=== PATIENT | female | born 1965 | race Caucasian/White ===

== ENCOUNTER 2023-10-24 05:34 | Outpatient (RCR) | payer BC, SELFPAY ==
[2023-10-17] MEDS: Normal Saline Flush 10 ML SYR IVP (09:10)
[2023-10-17 09:24] LABS: Abs Immature Grans 0.01 10^3/uL (0.0-0.06); Absolute Basophil Count 0.03 10^3/uL (0.0-0.2); Absolute Eosinophil Count 0.21 10^3/uL (0.0-0.7); Absolute Lymphocyte Count 1.92 10^3/uL (1.2-3.4); Absolute Monocyte Count 0.19 10^3/uL (0.1-0.8); Absolute Neutrophil Count 1.75 10^3/uL (1.2-6.7); Basophils % 0.7; Eosinophils % 5.1; HCT 35.9 % (36.0-46.0); HGB 12.3 g/dL (11.2-15.7); Immature Grans % 0.2; Lymphocytes % 46.7; MCH 30.1 pg (27.0-33.0); MCHC 34.3 % (32.0-36.0); MCV 88 fL (80-95); MPV 10.8 fL (8.0-11.0); Monocytes % 4.6; Neutrophils % 42.7; Platelet Count 241 10^3/uL (130-400); RBC 4.08 10^6/uL (3.93-5.22); RDW-SD 38.7 fL; WBC 4.11 10^3/uL (4.4-10.8)
[2023-10-17 09:46] LABS: ALT 25 U/L (14-59); AST 25 U/L (15-37); Albumin 3.6 g/dL (3.4-5.0); Alkaline Phosphatase 92 U/L (46-116); Anion Gap 9.1 mmol/L (3-11); BUN 11 mg/dL (7-18); Bilirubin, Total 0.4 mg/dL (0.2-1.0); CO2 27.9 mmol/L (21.0-32.0); CREATININE 0.8 mg/dL (0.55-1.02); Calcium 8.8 mg/dL (8.5-10.1); Chloride 102 mmol/L (98-107); Estimated GFR 84.82 (mL/min/1.73m2); Glucose 95 mg/dL (74-106); Potassium 4.2 mmol/L (3.5-5.1); Sodium 139 mmol/L (136-145); Total Protein 7.3 g/dL (6.4-8.2)
[2023-10-24] MEDS: Normal Saline Flush 10 ML SYR IVP (09:08)
[2023-10-24 09:16] LABS: Abs Immature Grans 0.02 10^3/uL (0.0-0.06); Absolute Basophil Count 0.04 10^3/uL (0.0-0.2); Absolute Eosinophil Count 0.16 10^3/uL (0.0-0.7); Absolute Lymphocyte Count 1.74 10^3/uL (1.2-3.4); Absolute Monocyte Count 0.19 10^3/uL (0.1-0.8); Absolute Neutrophil Count 1.83 10^3/uL (1.2-6.7); HCT 35.5 % (36.0-46.0); HGB 12.1 g/dL (11.2-15.7); Immature Grans % 0.5; Lymphocytes % 43.7; MCH 30.7 pg (27.0-33.0); MCHC 34.1 % (32.0-36.0); MCV 90 fL (80-95); MPV 10.4 fL (8.0-11.0); Monocytes % 4.8; Platelet Count 268 10^3/uL (130-400); RBC 3.94 10^6/uL (3.93-5.22); RDW 12.2 % (11.7-14.6); RDW-SD 40.4 fL; WBC 3.98 10^3/uL (4.4-10.8)
[2023-10-24 09:29] LABS: ALT 29 U/L (14-59); AST 24 U/L (15-37); Albumin 3.7 g/dL (3.4-5.0); Alkaline Phosphatase 95 U/L (46-116); Anion Gap 6.1 mmol/L (3-11); BUN 12 mg/dL (7-18); Bilirubin, Total 0.3 mg/dL (0.2-1.0); CO2 29.9 mmol/L (21.0-32.0); CREATININE 0.8 mg/dL (0.55-1.02); Chloride 102 mmol/L (98-107); Estimated GFR 84.82 (mL/min/1.73m2); Glucose 102 mg/dL (74-106); Potassium 4.5 mmol/L (3.5-5.1); Sodium 138 mmol/L (136-145); Total Protein 7.3 g/dL (6.4-8.2)
== END 2023-10-24 23:59 | disposition home or self-care (01) ==
LOC: INF 05:34
PROVIDERS: PCP Physician Assistant; Visit Provider Internal Medicine Hematology & Oncology
DX: C50.919 Malignant neoplasm of unspecified site of unspecified female breast (principal)
CPT/HCPCS: 36591; 80053; 85025

== ENCOUNTER → 2023-11-16 03:05 | Outpatient (CLI) | payer BC, SELFPAY ==
--- NOTE | 2023-11-16 14:58 | DI.US_ITS ---
APPROVED REPORT EXAM: Comprehensive 2D, Doppler, and color-flow Echocardiogram Patient Location: Out-Patient Licensed Staff Mft: Rebekah Harris RDCS (AE) Indications: HER2 Breast Cancer, Post Admin Chemo Other Information Study Quality: Good Conclusion Normal left ventricular wall thickness and chamber size. Ejection fraction is 60 to 65%. Wall motio n is normal Normal right ventricular size and function Both atria are normal in size There is no structural or hemodynamically significant valvular disease Estimated right ventricular systolic pressure is 21 mmHg Wall motion Left Ventricle The left ventricle is normal size. The left ventricular systolic function is normal. The left ventric ular ejection fraction is within the normal range. GLS21.5 There is normal left ventricular wall thic kness. There is normal LV segmental wall motion. There is no ventricular septal defect visualized. LV EF is 60-65%. Right Ventricle The right ventricle is normal size. The right ventricular systolic function is normal. Atria The left atrium size is normal. The right atrium size is normal. The interatrial septum is intact wit h no evidence for an atrial septal defect. Aortic Valve The aortic valve is normal in structure. Aortic valve is trileaflet. There is no aortic valvular sten osis. No aortic regurgitation is present. Mitral Valve The mitral valve is normal in structure. No evidence of mitral valve stenosis. Trace mitral regurgita tion. Tricuspid Valve The tricuspid valve is normal in structure. There is no tricuspid valve stenosis. Trace tricuspid reg urgitation. The RVSP is 20.9mmHg. Pulmonic Valve The pulmonary valve is normal in structure. There is no pulmonic valvular stenosis. There is no pulmo yaz valvular regurgitation. Great Vessels The aortic root is normal in size. The ascending aorta is normal in size. Aortic arch is not well vis ualized. IVC is normal in size and collapses >50% with inspiration. Pericardium There is no pericardial effusion. 2D Dimensions IVSD d PLAX 0.91 cm F: 0.6-1.0 Ao Root d 2.58 cm F: 2.7 - 3.3 LVPW d PLAX 0.87 cm F: 0.6 - 1.0 Ao Asc Diam d 2.52 cm F: 2.3 - 3.1 LVID d PLAX 4.69 cm F: 3.8 - 5.2 LVDs 3.04 cm F: 2.2 - 3.5 LV EF Teichholz 64.6 % FS 35.24 % LV EDV (Teich) 101.9 mL LV ESV (Teich) 36.1 mL M-Mode TAPSE 3.08 cm (M/F) >1.7 Auto EF LV EDV A4C 76.8 mL LV EDV A2C 90.2 mL LV EDV BP 83.3 mL LV ESV A4C 30.8 mL LV ESV A2C 32.3 mL LV ESV BP 31.7 mL LVEF(%) A4C 59.9 % LVEF(%) A2C 64.2 % LVEF(%) BP 62.0 % LV SV A4C 46.0 ml LV SV A2C 57.9 ml LV SV BP 51.6 ml LV CO A4C 2.9 L/min LV CO A2C 3.8 L/min LV CO BP 3.3 L/min HR A4C 62.70 BPM HR A2C 65.34 BPM LV EDV Index (BP) LV Strain Long Pk Overal Avg (s) 21.46 RV Strain Global Peak Long. Strain A4C 20.96 Global Peak Long. Strain A4C FW 21.57 LA Volume LA Length A4C 5.2 cm LA Length A2C 5.5 cm LA Area A4C s 14.69 cm2 LA Area A2C s 19.71 cm2 LA Vol A4C A-L 35.26 mL LA Vol A2C A-L 59.52 mL LA Vol Biplane A-L 47.3 mL LA Vol/BSA A4C A-L LA Vol/BSA A2C A-L LA Vol/BSA BP A-L 29.4 mL/m2 LA Vol A4C MOD 32.7 mL LA Vol A2C MOD 56.4 mL LA Vol BP MOD 44.1 mL RA Volume RA Area A4C 9.7 cm2 RA ESV A4C (A-L) 21.7mL RA Vol/BSA A4C A-L RA Length A4C 3.7 cm RA ESV A4C (MOD) 19.6mL LV Diastology MV E' medial 0.108 (>0.07 m/s) MV E Vmax 1.10 (0.4-1.3 m/s) MV E/E' MED 10.20 (<14) MV A Vmax 0.75 (0.4-1.3 m/s) MV E' lateral 0.118 (>0.1 m/s) E/A Ratio 1.5 MV E/E' LAT 9.35 (<14) MV E' Average 0.113 m/s MV E/E'(average) 9.76 Aortic Valve AoV Vmax 1.67 m/s LVOT Vmax 1.35 m/s AoV Peak Grad 11.1 mmHg LVOT Peak Grad 7.3 mmHg AoV Area (Vmax) 2.28 cm2 LVOT VTI 0.322 m AoV VTI 0.402 m LVOT Mean Grad 5.1 mmHg AoV Mean Rajinder. 1.21 m/s LVOT SV 90.26 mL AoV Mean Grad 6.6 mmHg LVOT Diam s 1.85 cm AoV Area (VTI) 2.24 cm2 Velocity Ratio 0.81 Mitral Valve MV DT 149 (160-240 msec) MV Vmax TIPS 1.00 m/s MV Mean Grad 1.5 (<2mmHg) MV VTI 0.297 m Pulmonary Valve PV Vmax 1.16 (0.5-1.5 m/s) RVOT Vmax 0.79 m/s PV Peak Grad 5.4 mmHg RVOT Peak Gr. 2.5 mmHg PV Mean Rajinder 0.84 m/s RVOT VTI 0.195 m PV Mean Grad 3.2 mmHg RVOT Mean Gr. 1.3 mmHg Tricuspid Valve RA Pressure 3.00 mmHg TR Vmax 2.12 m/s TV S' 0.16 m/s TR Peak Grad 17.9 mmHg RVSP (TR) 20.9 mmHg
== END ==
PROVIDERS: PCP Physician Assistant; Visit Provider Internal Medicine Hematology & Oncology
DX: I34.0 Nonrheumatic mitral (valve) insufficiency (principal); I36.1 Nonrheumatic tricuspid (valve) insufficiency
CPT/HCPCS: 93306

== ENCOUNTER 2023-11-21 01:07 | Outpatient (RCR) | payer BC, SELFPAY ==
[2023-10-31] MEDS: Normal Saline Flush 10 ML SYR IVP (08:33)
[2023-10-31 09:11] LABS: Abs Immature Grans 0.02 10^3/uL (0.0-0.06); Absolute Basophil Count 0.05 10^3/uL (0.0-0.2); Absolute Eosinophil Count 0.12 10^3/uL (0.0-0.7); Absolute Lymphocyte Count 2.02 10^3/uL (1.2-3.4); Absolute Monocyte Count 0.21 10^3/uL (0.1-0.8); Absolute Neutrophil Count 1.51 10^3/uL (1.2-6.7); Basophils % 1.3 %; Eosinophils % 3.1 %; HCT 35.6 % (36.0-46.0); HGB 12.2 g/dL (11.2-15.7); Immature Grans % 0.5 %; Lymphocytes % 51.4 %; MCH 30.7 pg (27.0-33.0); MCHC 34.3 % (32.0-36.0); MCV 89 fL (80-95); MPV 10.9 fL (8.0-11.0); Monocytes % 5.3 %; Neutrophils % 38.4 %; Platelet Count 303 10^3/uL (130-400); RBC 3.98 10^6/uL (3.93-5.22); RDW 12.7 % (11.7-14.6); RDW-SD 41.1 fL; WBC 3.93 10^3/uL (4.4-10.8)
[2023-10-31 09:26] LABS: ALT 31 U/L (14-59); AST 25 U/L (15-37); Albumin 3.6 g/dL (3.4-5.0); Alkaline Phosphatase 94 U/L (46-116); Anion Gap 7.4 mmol/L (3-11); BUN 12 mg/dL (7-18); Bilirubin, Total 0.3 mg/dL (0.2-1.0); CO2 27.6 mmol/L (21.0-32.0); CREATININE 0.9 mg/dL (0.55-1.02); Calcium 8.8 mg/dL (8.5-10.1); Chloride 103 mmol/L (98-107); Estimated GFR 73.64 (mL/min/1.73m2); Glucose 113 mg/dL (74-106); Potassium 4.4 mmol/L (3.5-5.1); Sodium 138 mmol/L (136-145); Total Protein 7.3 g/dL (6.4-8.2)
[2023-11-07] MEDS: Normal Saline Flush 10 ML SYR IVP (09:19)
[2023-11-07 09:38] LABS: Abs Immature Grans 0.03 10^3/uL (0.0-0.06); Absolute Basophil Count 0.06 10^3/uL (0.0-0.2); Absolute Eosinophil Count 0.08 10^3/uL (0.0-0.7); Absolute Monocyte Count 0.24 10^3/uL (0.1-0.8); Absolute Neutrophil Count 1.46 10^3/uL (1.2-6.7); Basophils % 1.6 %; Eosinophils % 2.2 %; HCT 33.7 % (36.0-46.0); HGB 11.6 g/dL (11.2-15.7); Immature Grans % 0.8 %; MCH 30.9 pg (27.0-33.0); MCHC 34.4 % (32.0-36.0); MCV 90 fL (80-95); MPV 10.7 fL (8.0-11.0); Monocytes % 6.5 %; Neutrophils % 39.9 %; Platelet Count 290 10^3/uL (130-400); RBC 3.75 10^6/uL (3.93-5.22); RDW 13.2 % (11.7-14.6); WBC 3.67 10^3/uL (4.4-10.8)
[2023-11-07 10:05] LABS: ALT 23 U/L (14-59); AST 16 U/L (15-37); Albumin 3.6 g/dL (3.4-5.0); Alkaline Phosphatase 89 U/L (46-116); Anion Gap 7.3 mmol/L (3-11); BUN 12 mg/dL (7-18); Bilirubin, Total 0.3 mg/dL (0.2-1.0); CO2 27.7 mmol/L (21.0-32.0); CREATININE 0.9 mg/dL (0.55-1.02); Calcium 8.7 mg/dL (8.5-10.1); Chloride 103 mmol/L (98-107); Estimated GFR 73.64 (mL/min/1.73m2); Glucose 111 mg/dL (74-106); Potassium 4.3 mmol/L (3.5-5.1); Sodium 138 mmol/L (136-145); Total Protein 7.2 g/dL (6.4-8.2)
[2023-11-14] MEDS: Normal Saline Flush 10 ML SYR IVP (09:15)
[2023-11-14 09:45] LABS: Abs Immature Grans 0.05 10^3/uL (0.0-0.06); Absolute Basophil Count 0.05 10^3/uL (0.0-0.2); Absolute Eosinophil Count 0.11 10^3/uL (0.0-0.7); Absolute Lymphocyte Count 2.12 10^3/uL (1.2-3.4); Absolute Neutrophil Count 2.13 10^3/uL (1.2-6.7); Basophils % 1.1 %; Eosinophils % 2.3 %; HCT 36.5 % (36.0-46.0); HGB 12.2 g/dL (11.2-15.7); Immature Grans % 1.1 %; Lymphocytes % 44.5 %; MCH 30.5 pg (27.0-33.0); MCHC 33.4 % (32.0-36.0); MCV 91 fL (80-95); Monocytes % 6.3 %; Neutrophils % 44.7 %; Platelet Count 298 10^3/uL (130-400); RDW 13.5 % (11.7-14.6); RDW-SD 44.4 fL; WBC 4.76 10^3/uL (4.4-10.8)
[2023-11-14 10:15] LABS: ALT 25 U/L (14-59); AST 18 U/L (15-37); Albumin 3.7 g/dL (3.4-5.0); Alkaline Phosphatase 88 U/L (46-116); Anion Gap 9.4 mmol/L (3-11); BUN 12 mg/dL (7-18); Bilirubin, Total 0.3 mg/dL (0.2-1.0); CO2 26.6 mmol/L (21.0-32.0); CREATININE 0.9 mg/dL (0.55-1.02); Calcium 9.1 mg/dL (8.5-10.1); Chloride 102 mmol/L (98-107); Estimated GFR 73.64 (mL/min/1.73m2); Glucose 102 mg/dL (74-106); Potassium 4.2 mmol/L (3.5-5.1); Sodium 138 mmol/L (136-145); Total Protein 7.5 g/dL (6.4-8.2)
[2023-11-21 08:50] LABS: Abs Immature Grans 0.03 10^3/uL (0.0-0.06); Absolute Basophil Count 0.06 10^3/uL (0.0-0.2); Absolute Eosinophil Count 0.11 10^3/uL (0.0-0.7); Absolute Lymphocyte Count 1.79 10^3/uL (1.2-3.4); Absolute Monocyte Count 0.26 10^3/uL (0.1-0.8); Absolute Neutrophil Count 1.98 10^3/uL (1.2-6.7); Basophils % 1.4 %; Eosinophils % 2.6 %; HCT 34.5 % (36.0-46.0); HGB 11.5 g/dL (11.2-15.7); Immature Grans % 0.7 %; Lymphocytes % 42.3 %; MCH 30.2 pg (27.0-33.0); MCHC 33.3 % (32.0-36.0); MCV 91 fL (80-95); MPV 10.8 fL (8.0-11.0); Monocytes % 6.1 %; Neutrophils % 46.9 %; Platelet Count 290 10^3/uL (130-400); RBC 3.81 10^6/uL (3.93-5.22); RDW 14.1 % (11.7-14.6); RDW-SD 46.3 fL; WBC 4.23 10^3/uL (4.4-10.8)
[2023-11-21 09:10] LABS: ALT 24 U/L (14-59); AST 16 U/L (15-37); Albumin 3.6 g/dL (3.4-5.0); Alkaline Phosphatase 85 U/L (46-116); Anion Gap 8.1 mmol/L (3-11); BUN 11 mg/dL (7-18); Bilirubin, Total 0.3 mg/dL (0.2-1.0); CO2 25.9 mmol/L (21.0-32.0); CREATININE 0.9 mg/dL (0.55-1.02); Calcium 8.8 mg/dL (8.5-10.1); Chloride 103 mmol/L (98-107); Estimated GFR 73.64 (mL/min/1.73m2); Glucose 108 mg/dL (74-106); Potassium 4.4 mmol/L (3.5-5.1); Sodium 137 mmol/L (136-145); Total Protein 7.1 g/dL (6.4-8.2)
[2023-11-21] MEDS: Normal Saline Flush 10 ML SYR IVP (10:01)
== END 2023-11-24 23:59 | disposition home or self-care (01) ==
LOC: INF 01:07
PROVIDERS: Nurse Practitioner Family; PCP Physician Assistant; Visit Provider Internal Medicine Hematology & Oncology
DX: Z45.2 Encounter for adjustment and management of vascular access device (principal); C50.919 Malignant neoplasm of unspecified site of unspecified female breast
CPT/HCPCS: 36591; 80053; 85025

== ENCOUNTER 2023-12-19 02:22 | Outpatient (RCR) | payer BC, SELFPAY ==
[2023-11-28] MEDS: Normal Saline Flush 10 ML SYR IVP (09:06)
[2023-11-28 09:22] LABS: Abs Immature Grans 0.04 10^3/uL (0.0-0.06); Absolute Basophil Count 0.05 10^3/uL (0.0-0.2); Absolute Eosinophil Count 0.18 10^3/uL (0.0-0.7); Absolute Lymphocyte Count 1.88 10^3/uL (1.2-3.4); Absolute Monocyte Count 0.32 10^3/uL (0.1-0.8); Absolute Neutrophil Count 2.02 10^3/uL (1.2-6.7); Basophils % 1.1 %; HCT 34.7 % (36.0-46.0); HGB 11.5 g/dL (11.2-15.7); Immature Grans % 0.9 %; Lymphocytes % 41.9 %; MCH 30.6 pg (27.0-33.0); MCHC 33.1 % (32.0-36.0); MCV 92 fL (80-95); MPV 10.7 fL (8.0-11.0); Monocytes % 7.1 %; Platelet Count 298 10^3/uL (130-400); RBC 3.76 10^6/uL (3.93-5.22); RDW 14.4 % (11.7-14.6); WBC 4.49 10^3/uL (4.4-10.8)
[2023-11-28 09:31] LABS: ALT 24 U/L (14-59); AST 19 U/L (15-37); Albumin 3.8 g/dL (3.4-5.0); Alkaline Phosphatase 85 U/L (46-116); Anion Gap 8.9 mmol/L (3-11); BUN 13 mg/dL (7-18); Bilirubin, Total 0.3 mg/dL (0.2-1.0); CO2 27.1 mmol/L (21.0-32.0); CREATININE 0.8 mg/dL (0.55-1.02); Calcium 8.9 mg/dL (8.5-10.1); Chloride 104 mmol/L (98-107); Estimated GFR 84.82 (mL/min/1.73m2); Glucose 99 mg/dL (74-106); Potassium 4.2 mmol/L (3.5-5.1); Sodium 140 mmol/L (136-145); Total Protein 7.4 g/dL (6.4-8.2)
[2023-12-05] MEDS: Normal Saline Flush 10 ML SYR IVP (08:50)
[2023-12-05 09:21] LABS: Abs Immature Grans 0.04 10^3/uL (0.0-0.06); Absolute Basophil Count 0.06 10^3/uL (0.0-0.2); Absolute Eosinophil Count 0.11 10^3/uL (0.0-0.7); Absolute Lymphocyte Count 1.76 10^3/uL (1.2-3.4); Absolute Monocyte Count 0.27 10^3/uL (0.1-0.8); Absolute Neutrophil Count 1.93 10^3/uL (1.2-6.7); Basophils % 1.4 %; Eosinophils % 2.6 %; HCT 34.9 % (36.0-46.0); HGB 11.9 g/dL (11.2-15.7); Lymphocytes % 42.2 %; MCHC 34.1 % (32.0-36.0); MCV 91 fL (80-95); MPV 10.8 fL (8.0-11.0); Monocytes % 6.5 %; Neutrophils % 46.3 %; Platelet Count 305 10^3/uL (130-400); RBC 3.84 10^6/uL (3.93-5.22); RDW 14.5 % (11.7-14.6); RDW-SD 47.8 fL; WBC 4.17 10^3/uL (4.4-10.8)
[2023-12-05 09:49] LABS: ALT 24 U/L (14-59); AST 19 U/L (15-37); Albumin 3.7 g/dL (3.4-5.0); Alkaline Phosphatase 91 U/L (46-116); Anion Gap 10.6 mmol/L (3-11); BUN 11 mg/dL (7-18); Bilirubin, Total 0.3 mg/dL (0.2-1.0); CO2 26.4 mmol/L (21.0-32.0); CREATININE 0.9 mg/dL (0.55-1.02); Chloride 102 mmol/L (98-107); Estimated GFR 73.64 (mL/min/1.73m2); Glucose 91 mg/dL (74-106); Potassium 4.4 mmol/L (3.5-5.1); Sodium 139 mmol/L (136-145); Total Protein 7.4 g/dL (6.4-8.2)
[2023-12-12] MEDS: Normal Saline Flush 10 ML SYR IVP (08:06)
[2023-12-12 08:23] LABS: Abs Immature Grans 0.05 10^3/uL (0.0-0.06); Absolute Basophil Count 0.04 10^3/uL (0.0-0.2); Absolute Eosinophil Count 0.13 10^3/uL (0.0-0.7); Absolute Monocyte Count 0.27 10^3/uL (0.1-0.8); Absolute Neutrophil Count 2.55 10^3/uL (1.2-6.7); Basophils % 0.8 %; Eosinophils % 2.7 %; HCT 34.7 % (36.0-46.0); HGB 11.6 g/dL (11.2-15.7); Lymphocytes % 37.2 %; MCH 31.1 pg (27.0-33.0); MCHC 33.4 % (32.0-36.0); MCV 93 fL (80-95); MPV 10.7 fL (8.0-11.0); Monocytes % 5.6 %; Neutrophils % 52.7 %; Platelet Count 295 10^3/uL (130-400); RBC 3.73 10^6/uL (3.93-5.22); RDW 14.6 % (11.7-14.6); RDW-SD 49.5 fL; WBC 4.84 10^3/uL (4.4-10.8)
[2023-12-12 08:39] LABS: ALT 25 U/L (14-59); AST 19 U/L (15-37); Albumin 3.7 g/dL (3.4-5.0); Alkaline Phosphatase 81 U/L (46-116); Anion Gap 8.2 mmol/L (3-11); BUN 12 mg/dL (7-18); Bilirubin, Total 0.3 mg/dL (0.2-1.0); CO2 27.8 mmol/L (21.0-32.0); CREATININE 0.8 mg/dL (0.55-1.02); Chloride 103 mmol/L (98-107); Estimated GFR 84.82 (mL/min/1.73m2); Glucose 100 mg/dL (74-106); Potassium 4.2 mmol/L (3.5-5.1); Sodium 139 mmol/L (136-145); Total Protein 7.2 g/dL (6.4-8.2)
[2023-12-19] MEDS: Normal Saline Flush 10 ML SYR IVP (08:07)
[2023-12-19 08:49] LABS: Abs Immature Grans 0.03 10^3/uL (0.0-0.06); Absolute Basophil Count 0.07 10^3/uL (0.0-0.2); Absolute Eosinophil Count 0.16 10^3/uL (0.0-0.7); Absolute Monocyte Count 0.25 10^3/uL (0.1-0.8); Absolute Neutrophil Count 1.78 10^3/uL (1.2-6.7); Basophils % 1.7 %; Eosinophils % 3.8 %; HCT 35.3 % (36.0-46.0); HGB 11.9 g/dL (11.2-15.7); Immature Grans % 0.7 %; Lymphocytes % 45.3 %; MCH 31.6 pg (27.0-33.0); MCHC 33.7 % (32.0-36.0); MCV 94 fL (80-95); MPV 10.9 fL (8.0-11.0); Neutrophils % 42.5 %; Platelet Count 302 10^3/uL (130-400); RBC 3.77 10^6/uL (3.93-5.22); WBC 4.19 10^3/uL (4.4-10.8)
[2023-12-19 09:04] LABS: ALT 23 U/L (14-59); AST 17 U/L (15-37); Albumin 3.7 g/dL (3.4-5.0); Alkaline Phosphatase 82 U/L (46-116); Anion Gap 8.1 mmol/L (3-11); BUN 13 mg/dL (7-18); Bilirubin, Total 0.29 mg/dL (0.2-1.0); CO2 28.9 mmol/L (21.0-32.0); CREATININE 0.8 mg/dL (0.55-1.02); Calcium 9.1 mg/dL (8.5-10.1); Chloride 104 mmol/L (98-107); Estimated GFR 84.82 (mL/min/1.73m2); Glucose 115 mg/dL (74-106); Potassium 4.2 mmol/L (3.5-5.1); Sodium 141 mmol/L (136-145); Total Protein 7.4 g/dL (6.4-8.2)
== END 2023-12-24 23:59 | disposition home or self-care (01) ==
LOC: INF 02:22
PROVIDERS: Nurse Practitioner Family; PCP Physician Assistant; Visit Provider Internal Medicine Hematology & Oncology
DX: Z45.2 Encounter for adjustment and management of vascular access device (principal); C50.919 Malignant neoplasm of unspecified site of unspecified female breast
CPT/HCPCS: 36591; 80053; 85025

== ENCOUNTER → 2024-01-17 01:06 | Outpatient (CLI) | payer BC, SELFPAY ==
--- NOTE | 2024-01-17 12:28 | DI.US_ITS ---
APPROVED REPORT EXAM: Comprehensive 2D, Doppler, and color-flow Echocardiogram Patient Location: Out-Patient Internal Combustion Engineer: Rebekah Harris RDCS (AE) Indications: HER2 Positive Carcinoma of Breast Other Information Study Quality: Good Conclusion Normal left ventricular wall thickness and chamber size. Ejection fraction is 60%. Wall motion is n ormal Normal right ventricular size and function Both atria are normal in size There are no structural valvular abnormalities There is mild mitral regurgitation Estimated right ventricular systolic pressure is normal at 22 mmHg Wall motion Left Ventricle The left ventricle is normal size. The left ventricular systolic function is normal. The left ventric ular ejection fraction is within the normal range. There is normal left ventricular wall thickness. T here is normal LV segmental wall motion. There is no ventricular septal defect visualized. LVEF is 60 %. Right Ventricle The right ventricle is normal size. The right ventricular systolic function is normal. Atria The left atrium size is normal. The right atrium size is normal. The interatrial septum is intact wit h no evidence for an atrial septal defect. Aortic Valve The aortic valve is normal in structure. Aortic valve is trileaflet. There is no aortic valvular sten osis. No aortic regurgitation is present. Mitral Valve The mitral valve is normal in structure. No evidence of mitral valve stenosis. Mild mitral regurgitat ion. Tricuspid Valve The tricuspid valve is normal in structure. There is no tricuspid valve stenosis. Trace tricuspid reg urgitation. The RVSP is 22.3_ mmHg. Pulmonic Valve The pulmonary valve is normal in structure. There is no pulmonic valvular stenosis. There is no pulmo yaz valvular regurgitation. Great Vessels The aortic root is normal in size. The ascending aorta is normal in size. Aortic arch is normal in ca liber. IVC is normal in size and collapses >50% with inspiration. Pericardium There is no pericardial effusion. 2D Dimensions IVSD d PLAX 0.91 cm F: 0.6-1.0 Ao Root d 2.32 cm F: 2.7 - 3.3 LVPW d PLAX 0.90 cm F: 0.6 - 1.0 Ao Asc Diam d 2.81 cm F: 2.3 - 3.1 LVID d PLAX 4.30 cm F: 3.8 - 5.2 LVDs 2.90 cm F: 2.2 - 3.5 LV EF Teichholz 61.6 % FS 32.82 % LV EDV (Teich) 82.4 mL LV ESV (Teich) 31.6 mL M-Mode TAPSE 2.30 cm (M/F) >1.7 Auto EF LV EDV A4C 66.7 mL LV EDV A2C 85.5 mL LV EDV BP 75.7 mL LV ESV A4C 29.4 mL LV ESV A2C 32.4 mL LV ESV BP 31.1 mL LVEF(%) A4C 55.9 % LVEF(%) A2C 62.1 % LVEF(%) BP 58.9 % LV SV A4C 37.3 ml LV SV A2C 53.1 ml LV SV BP 44.6 ml LV CO A4C 2.6 L/min LV CO A2C 3.7 L/min LV CO BP 3.1 L/min HR A4C 68.83 BPM HR A2C 68.83 BPM LV EDV Index (BP) LV Strain Long Pk Overal Avg (s) 18.51 LA Volume LA Length A4C 5.1 cm LA Length A2C 4.3 cm LA Area A4C s 15.44 cm2 LA Area A2C s 13.86 cm2 LA Vol A4C A-L 39.31 mL LA Vol A2C A-L 37.55 mL LA Vol Biplane A-L 41.8 mL LA Vol/BSA A4C A-L LA Vol/BSA A2C A-L LA Vol/BSA BP A-L 26.0 mL/m2 LA Vol A4C MOD 36.2 mL LA Vol A2C MOD 35.6 mL LA Vol BP MOD 39.0 mL RA Volume RA Area A4C 10.4 cm2 RA ESV A4C (A-L) 23.1mL RA Vol/BSA A4C A-L RA Length A4C 4.0 cm RA ESV A4C (MOD) 22.1mL LV Diastology MV E' medial 0.118 (>0.07 m/s) MV E Vmax 0.84 (0.4-1.3 m/s) MV E/E' MED 7.12 (<14) MV A Vmax 0.65 (0.4-1.3 m/s) MV E' lateral 0.118 (>0.1 m/s) E/A Ratio 1.3 MV E/E' LAT 7.12 (<14) MV E' Average 0.118 m/s MV E/E'(average) 7.12 Aortic Valve AoV Vmax 1.55 m/s LVOT Vmax 1.13 m/s AoV Peak Grad 9.6 mmHg LVOT Peak Grad 5.1 mmHg AoV Area (Vmax) 2.25 cm2 LVOT VTI 0.219 m AoV VTI 0.327 m LVOT Mean Grad 3.1 mmHg AoV Mean Rajinder. 1.13 m/s LVOT SV 67.65 mL AoV Mean Grad 5.7 mmHg LVOT Diam s 1.95 cm AoV Area (VTI) 2.07 cm2 AV Regurg Peak Gr. 9.57 mmHg Velocity Ratio 0.73 Mitral Valve MV DT 156 (160-240 msec) MV Vmax TIPS 0.79 m/s MV Mean Grad 0.8 (<2mmHg) MV VTI 0.221 m Pulmonary Valve PV Vmax 0.90 (0.5-1.5 m/s) RVOT Vmax 0.77 m/s PV Peak Grad 3.3 mmHg RVOT Peak Gr. 2.4 mmHg PV Mean Rajinder 0.72 m/s RVOT VTI 0.176 m PV Mean Grad 2.2 mmHg RVOT Mean Gr. 1.8 mmHg Tricuspid Valve RA Pressure 3.00 mmHg TR Vmax 2.20 m/s TV S' 0.15 m/s TR Peak Grad 19.3 mmHg RVSP (TR) 22.3 mmHg
== END ==
PROVIDERS: PCP Physician Assistant; Visit Provider Internal Medicine Hematology & Oncology
DX: C50.919 Malignant neoplasm of unspecified site of unspecified female breast (principal)
CPT/HCPCS: 93306

== ENCOUNTER 2024-01-23 03:04 | Outpatient (RCR) | payer BC, SELFPAY ==
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
--- OUTSIDE RECORDS SUMMARY | 2023-12-26 08:22 | XMS_ITS | Continuity of Care Document ---
Author Name Unknown Organization [facility] Ambulatory Clinics Address [address] [place] [address] Care Team Providers Care Pad Machine Operator Name Role Phone Radha Stanley PA-C Primary Care Physician Encounter [facility] NBR [id number] Date(s): 05/08/23 - 05/08/23 [facility] Ambulatory Clin[facility] [address] [place] [address]- [place] Discharge Disposition: Home Allergies, [...] Daily, # 90 tab, 3 Refill(s), Pharmacy: [id number] Start Date: 04/19/23 Status: Ordered Neuriva Brain performance Plus 0 Refill(s) Start Date: 08/08/22 Status: Ordered PARoxetine 30 mg oral tablet 30 mg = 1 tab, Oral, every morning, # 90 tab, 3 Refill(s), Pharmacy: [id number] Start Date: 04/19/23 Status: Ordered Shingrix intramuscular injection 0.5 mL, IM, Once, repeat dose in 2 to 6 months, # 1 EA, 0 Refill(s), Pharmacy: [facility] Start Date: 04/19/23 Status: Ordered Problem [...] Member Role: Primary Care Physician Address: Address: [address] [place] [phone] [place] Care Team Related Persons Name: JESSE COHEN Address: [address] [phone] [facility]
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
--- OUTSIDE RECORDS SUMMARY | 2023-12-26 08:22 | XMS_ITS | Continuity of Care Document ---
Author Name Unknown Organization [facility] Address [address] [place] [address] Care Team Providers Care Investigator Name Role Phone Jaden BYERS, Radha Primary Care Physician Encounter [facility] FIN NBR [id number] Date(s): 05/08/23 - 05/08/23 [facility] [address] [place] [address]- [place] Discharge Disposition: Home or Self Care Attending Physician: Radha Stanley PA-C Admitting Physician: Radha Stanley PA-C Referring Physician: Radha Stanley PA-C Allergies, Adverse Reactions, [...] Daily, # 90 tab, 3 Refill(s), Pharmacy: [id number] Start Date: 04/19/23 Status: Ordered Neuriva Brain performance Plus 0 Refill(s) Start Date: 08/08/22 Status: Ordered PARoxetine 30 mg oral tablet 30 mg = 1 tab, Oral, every morning, # 90 tab, 3 Refill(s), Pharmacy: [id number] Start Date: 04/19/23 Status: Ordered Shingrix intramuscular injection 0.5 mL, IM, Once, repeat dose in 2 to 6 months, # 1 EA, 0 Refill(s), Pharmacy: [facility] Start Date: 04/19/23 Status: Ordered [...] Comple maryann Left thumb 2003 Completed Tonsillectomy 1974 Completed 1recall 5 years 2breech presentation 3granuloma Results Laboratory List Name Date Basic Metabolic Panel 05/08/23 Lipid Panel 05/08/23 Thyroid Stimulating Hormone (TSH) Most recent to oldest [Reference Range]: 1 BUN [8-26 mg/dL] 12 mg/dL (05/08/23 9:45 AM) Cholesterol Total [129-209 mg/dL] 292 mg /dL *HI* (05/08/23 9:45 AM) LDL 190.2 mg/dL 1 *NA* (05/08/23 9:45 AM) Glucose Level [74-106 mg/dL] 101 mg/dL (05/08/23 9:45 AM) Potassium Level [3.5-5.1 mmol/L] 4.4 mmo l/L (05/08/23 9:45 AM) HDL [40-80 mg/dL] 87 mg/dL *HI* (05/08/23 9:45 AM) Osmolality [275-295 mOsm/kg] 274 mOsm/kg *LOW* (05/08/23 9:45 AM) Sodium Level [134-143 mmol/L] 137 mmol/L (05/08/23 9:45 AM) Chol/HDL 3.4 2 *NA* (05/08/23 9:45 AM) Triglycerides [10-150 mg/dL] 74 mg/dL (05/08/23 9:45 AM) Calcium Level [8.9-10.3 mg/dL] 9.5 mg/dL (05/08/23 9:45 AM) CO2 [22-32 mmol/L] 25 mmol/L (05/08/23 9:45 AM) TSH [0.45-5.33 mcIntlUnit/mL] 1.70 mcInt lUnit/mL (05/08/23 9:45 AM) Chloride Level [98-111 mmol/L] 105 mmol/ L (05/08/23 9:45 AM) BUN/Creat Ratio [8.0-20.0] 17.1 (05/08/23 9:45 AM) Creatinine Level [0.44-1.00 mg/dL] 0.70 mg/dL (05/08/23 9:45 AM) Anion Gap [3.0-12.0] 7.0 (05/08/23 9:45 AM) eGFR CKD-EPI [>=60 mL/min/1.73 m2] 100 m L/min/1.73 m2 (05/08/23 9:45 AM) 1Interpretive Data: Optimal: Less than 100 mg/dL Above Optimal: 100 - 129 mg/dL Borderline High: 130 - 159 mg/dL High: 160 - 189 mg/dL Very High: > or = 190 mg/dL 2Interpretive Data: RISK MALE FEMALE 1/2 average 3.4 3.3 Average 5.0 4.4 2x Average 9.6 7.1 3x Average 23.4 11.0 Social History Social History Type Response Tobacco Never tobacco user T obacco Use:. Sex Patient Care team information Care Team Personnel Name: Radha Stanley PA-C Position: Physician Member Role: Primary Care Physician Address: Address: [address] [place] [phone] [place] Care Team Related Persons Name: JESSE COHEN Address: Home [address] [phone] [facility]
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
--- OUTSIDE RECORDS SUMMARY | 2023-12-26 08:22 | XMS_ITS | Continuity of Care Document ---
Author Name Unknown Organization [facility] Address [address] [place] [address] Care Team Providers Care Outcome Analyst Name Role Phone Raquel Smith Primary Care Physician Encounter [facility] FIN NBR [id number] Date(s): 08/09/22 - 08/09/22 [facility] [address] [place], [place] [address] Encounter Diagnosis Gynecologic exam normal(Discharge Diagnosis) - 08/09/22 Breast cancer screening by mammogram(Discharge Diagnosis) - 08/09/22 Discharge Disposition: Home or Self Care Attending Physician: Raquel Smith APRN Allergies, Adverse Reactions, Alerts Substance Reaction Severity [...] MG Mammo Screening Bilateral 08/30/22 Functional Status 08/09/22 Recent Travel History No recent travel Other exposure to Infectious Disease Non e Medications lisinopril 10 mg oral tablet 90 EA, TAKE 1 TABLET BY MOUTH ONCE DAILY, 0 Refill(s) Start Date: 08/08/22 Status: Ordered Neuriva Brain performance Plus 0 [...] Most recent to oldest [Reference Range]: 1 Blood Pressure [90-140/60-90 mmHg] 140/8 2mmHg (08/09/22 8:09 AM) Weight 56.6 kg (08/09/22 8:09 AM) Weight Measured (lbs) 124.781 lb (08/09/22 8:09 AM) [place] Body Weight Calculated 52.4 kg (08/09/22 8:09 AM) Height 160.02 cm (08/09/22 8:09 AM) Height/Length Measured (inches) 63 inch (08/09/22 8:09 AM) BSA Measured 1.59 m2 (08/09/22 8:09 AM) Body Mass Index 22.1 kg/m2 (08/09/22 8:09 AM) Social History Social History Type Response Tobacco Never tobacco user T obacco Use:. Sex Patient Care team information Care Team Personnel Name: Raquel Smith APRN Position: Physician - Women's Health Member Role: Primary Care Physician Address: Address: [address] [place] [phone] [place] Care Team Related Persons Name: JESSE COHEN Address: [address] [id number] [facility]
--- OUTSIDE RECORDS SUMMARY | 2023-12-26 08:23 | XMS_ITS | Continuity of Care Document ---
Author Name Unknown Organization [facility] Address [address] [place] [address] Care Team Providers Care Analytics Senior Manager Name Role Phone Radha Stanley PA-C Primary Care Physician Encounter [facility] NBR [id number] Date(s): 05/09/23 - 05/09/23 [facility] [address] [place] [address]- Encounter Diagnosis Left breast lump(Discharge Diagnosis) - 05/09/23 Discharge Disposition: Home Allergies, Adverse Reactions, Alerts Substance Reaction Severity Status penicillin Anaphylaxis Severe Active thimerosal topical 1 Swelling (contact solution) Moder ate Active Soy Products Moderate Active Seasonal 2 Unknown Unknown Active Ragweed Sneezing Unknown Active green tea 3 Sneezing Moderate Active 1Outside Source Comment: contact solution 2Outside Source Comment: environmental allergies 3Outside Source Comment: and Chamomile tea Assessment and Plan Future Appointments Future Scheduled Tests Radiology* MG Mammo Screening Bilateral 08/30/22 Immunizations Given and Recorded Vaccine Date Status Refusal Reason tetanus/diphth/pertuss (Tdap) adult/adol 04/19/23 Given Medications lisinopril 10 mg oral tablet 10 mg = 1 tab, Oral, Daily, # 90 tab, 3 Refill(s), Pharmacy: [id number] Start Date: 04/19/23 Status: Ordered Neuriva Brain performance Plus 0 Refill(s) Start Date: 08/08/22 Status: Ordered PARoxetine 30 mg oral tablet 30 mg = 1 tab, Oral, every morning, # 90 tab, 3 Refill(s), [id number] Start Date: 04/19/23 Status: Ordered Shingrix intramuscular injection 0.5 mL, IM, Once, repeat dose in 2 to 6 months, # 1 EA, 0 Refill(s), Pharmacy: [facility] Start Date: 04/19/23 Status: Ordered [...] Member Role: Primary Care Physician Address: Address: [address] [place] [phone] [place] Care Team Related Persons Name: JESSE COHEN Address: [address] [phone] [facility]
--- OUTSIDE RECORDS SUMMARY | 2023-12-26 08:23 | XMS_ITS | Continuity of Care Document ---
Author Name Unknown Organization [facility] Address [address] [place] [id number] Care Team Providers Care Pit Operator Name Role Phone Leila Greenfield MD Primary Care Physician [phone] Encounter LTTL_[place] FIN NBR [id number] Date(s): 09/05/22 - 09/05/[address] [address]- Encounter Diagnosis Encounter for screening mammogram for malignant neoplasm of breast(Final) - Discharge Disposition: Home or Self Care Attending Physician: LEILA GREENFIELD MD Admitting Physician: LEILA GREENFIELD MD Results Radiology Reports * Exam Date Time Procedure Performing Provider Status 09/05/22 3:24 PM MG Mammo Screening Bilateral [place], A nna; Auth (Verified) Notes: (MG Mammo Screening Bilateral) Reason For Exam: SCREENING MG Mammo Screening Bilateral EXAM DESCRIPTION: MG Mammo Screening Bilateral 09/05/2022 INDICATION: SCREENING COMPARISON: Prior studies most recently dated 09/20/2021 BREAST DENSITY: The breasts are almost entirely fatty. FINDINGS: MLO and CC views were performed with digital breast tomosynthesis. Images were reviewed using computer aided detection. No asymmetry, architectural distortion or suspicious grouping of calcifications to suggest malignancy in either breast. ASSESSMENT: No mammographic evidence of malignancy. Negative. BI-RADS category 1. RECOMMENDATION: Screening mammography in 1 year JOB #: [id number] Final Signed by: Sohail Gomes MD Signed (Electronic Signature): 09/05/2022 3:36 pm MG Breast - bilateral Screening * Sohail Gomes MD: VERIFY, VERIFY Event Display: Report EXAM DESCRIPTION: MG Mammo Screening Bilateral 09/05/2022 INDICATION: SCREENING COMPARISON: Prior studies most recently dated 09/20/2021 BREAST DENSITY: The breasts are almost entirely fatty. FINDINGS: MLO and CC views were performed with digital breast tomosynthesis. Images were reviewed using computer aided detection. No asymmetry, architectural distortion or suspicious grouping of calcifications to suggest malignancy in either breast. ASSESSMENT: No mammographic evidence of malignancy. Negative. BI-RADS category 1. RECOMMENDATION: Screening mammography in 1 year JOB #: [id number] Final Signed by: Sohail Gomes MD Signed (Electronic Signature): 09/05/2022 3:36 pm Patient Care team information Care Team Personnel Name: Leila Greenfield MD Position: Physician Member Role: Primary Care Physician Address: Address: [address] [place] [id number]- Care Team Related Persons Name: ARSEN COHEN
--- OUTSIDE RECORDS SUMMARY | 2023-12-26 08:23 | XMS_ITS | Continuity of Care Document ---
Author Name Unknown Organization [facility] Address [address] [place] [address] Care Team Providers Care Nursery Technician Name Role Phone Jaden BYERS, Radha Primary Care Physician Encounter LTTL_[place] FIN NBR [id number] Date(s): 05/08/23 - 05/08/23 [facility] [address] [place] [address]- [place] Discharge Disposition: Home or [...] Daily, # 90 tab, 3 Refill(s), Pharmacy: [id number] Start Date: 04/19/23 Status: Ordered Neuriva Brain performance Plus 0 Refill(s) Start Date: 08/08/22 Status: Ordered PARoxetine 30 mg oral tablet 30 mg = 1 tab, Oral, every morning, # 90 tab, 3 Refill(s), Pharmacy: [id number] Start Date: 04/19/23 Status: Ordered Shingrix intramuscular injection 0.5 mL, IM, Once, repeat dose in 2 to 6 months, # 1 EA, 0 Refill(s), Pharmacy: [facility] Start Date: 04/19/23 Status: [...] 1recall 5 years 2breech presentation 3granuloma Results Radiology Reports * Exam Date Time Procedure Performing Provider Status 05/08/23 9:20 AM US Breast Limited Left Saul Randhawa (Verified) Notes: (US Breast Limited Left) Reason For Exam: L breast lump US Breast Limited Left EXAM DESCRIPTION: US Breast Limited Left 05/08/2023 INDICATION: US Breast Limited Left TECHNIQUE: Limited grayscale ultrasound examination of the left breast was performed targeted to area of palpable concern. Static and cine clip images were obtained. This examination was performed in conjunction with diagnostic mammogram. COMPARISON: Diagnostic mammogram from 05/08/2023 FINDINGS: Ovoid lobular poorly marginated soft tissue mass with evidence of internal vascularity by color-flow analysis at the 9 o'clock position 1 cm from the nipple measuring approximately 4.4 x 3.1 x 1.5 cm. This corresponds to the lesion seen on same date diagnostic mammogram in the vicinity of palpable concern. Findings are suspicious for neoplasm. Ultrasound-guided biopsy is recommended Results were discussed with the patient and telephoned to referring provider at the time of interpretation. ASSESSMENT: Highly suggestive of malignancy. BI-RADS category 5. RECOMMENDATION: Biopsy JOB #: [id number] Final Signed by: Sohail Gomes MD Signed (Electronic Signature): 05/08/2023 9:28 am * Exam Date Time Procedure Performing Provider Status 05/08/23 8:32 AM MG Mammo Diagnostic Bilateral Sjoland Osmany grier (Verified) Notes: (MG Mammo Diagnostic Bilateral) Reason For Exam: L breast lump 03/05/11 o'clock MG Mammo Diagnostic Bilateral EXAM DESCRIPTION: MG Mammo Diagnostic Bilateral 05/08/2023 INDICATION: L BREAST LUMP 03/05/11 O'CLOCK RISK FACTOR: The patient may be at increased breast cancer risk based on Radha risk model COMPARISON: 08/26/2021 and 06/16/2020 BREAST DENSITY: The breasts are heterogeneously dense which may obscure small masses. FINDINGS: MLO and CC views were performed with digital breast tomosynthesis. Images were reviewed using computer aided detection. A skin marker was placed on the left breast in the vicinity of palpable concern. Ovoid lobular mass in the left lower inner quadrant region in the vicinity of palpable concern with multiple coarse and punctate calcifications which appears new since prior studies. Left breast ultrasound demonstrated a solid mass in this region. Findings are suspicious for neoplasm, and ultrasound-guided biopsy is recommended. Results were discussed with the patient and telephoned to referring provider at the time of interpretation. ASSESSMENT: Highly suggestive of malignancy. BI-RADS category 5. RECOMMENDATION: 1: Biopsy JOB #: [id number] Final Signed by: Sohail Gomes MD Signed (Electronic Signature): 05/08/2023 9:26 am Social History Social History Type Response Tobacco Never tobacco user T obacco Use:. Sex Patient Care team information Care Team Personnel Name: Radha Stanley PA-C Position: Physician Member Role: Primary Care Physician Address: Address: [address] [place] [id number] [place] Care Team Related Persons Name: JESSE COHEN Address: [address] [id number] [facility]
[2023-12-26] MEDS: Normal Saline Flush 10 ML SYR IVP (09:10)
[2023-12-26 09:16] LABS: Abs Immature Grans 0.03 10^3/uL (0.0-0.06); Absolute Basophil Count 0.06 10^3/uL (0.0-0.2); Absolute Eosinophil Count 0.08 10^3/uL (0.0-0.7); Absolute Lymphocyte Count 1.77 10^3/uL (1.2-3.4); Basophils % 1.5 %; HGB 11.5 g/dL (11.2-15.7); Immature Grans % 0.7 %; Lymphocytes % 43.8 %; MCH 31.6 pg (27.0-33.0); MCHC 33.8 % (32.0-36.0); MCV 93 fL (80-95); MPV 10.7 fL (8.0-11.0); Monocytes % 7.4 %; Neutrophils % 44.6 %; Platelet Count 302 10^3/uL (130-400); RBC 3.64 10^6/uL (3.93-5.22); RDW 15.3 % (11.7-14.6); RDW-SD 52.6 fL; WBC 4.04 10^3/uL (4.4-10.8)
[2023-12-26 09:31] LABS: ALT 22 U/L (14-59); AST 18 U/L (15-37); Albumin 3.6 g/dL (3.4-5.0); Alkaline Phosphatase 80 U/L (46-116); Anion Gap 8.1 mmol/L (3-11); BUN 12 mg/dL (7-18); Bilirubin, Total 0.27 mg/dL (0.2-1.0); CO2 27.9 mmol/L (21.0-32.0); CREATININE 0.8 mg/dL (0.55-1.02); Calcium 8.6 mg/dL (8.5-10.1); Chloride 102 mmol/L (98-107); Estimated GFR 84.82 (mL/min/1.73m2); Glucose 96 mg/dL (74-106); Potassium 4.3 mmol/L (3.5-5.1); Sodium 138 mmol/L (136-145); Total Protein 7.1 g/dL (6.4-8.2)
[2024-01-02] MEDS: Normal Saline Flush 10 ML SYR IVP (13:34)
[2024-01-02 14:20] LABS: Abs Immature Grans 0.05 10^3/uL (0.0-0.06); Absolute Basophil Count 0.05 10^3/uL (0.0-0.2); Absolute Eosinophil Count 0.11 10^3/uL (0.0-0.7); Absolute Lymphocyte Count 2.08 10^3/uL (1.2-3.4); Absolute Monocyte Count 0.38 10^3/uL (0.1-0.8); Absolute Neutrophil Count 2.17 10^3/uL (1.2-6.7); Eosinophils % 2.3 %; HCT 33.6 % (36.0-46.0); HGB 11.4 g/dL (11.2-15.7); MCH 31.8 pg (27.0-33.0); MCHC 33.9 % (32.0-36.0); MCV 94 fL (80-95); MPV 11.1 fL (8.0-11.0); Monocytes % 7.9 %; Neutrophils % 44.8 %; Platelet Count 301 10^3/uL (130-400); RBC 3.59 10^6/uL (3.93-5.22); RDW 15.4 % (11.7-14.6); WBC 4.84 10^3/uL (4.4-10.8)
[2024-01-02 14:36] LABS: ALT 22 U/L (14-59); AST 19 U/L (15-37); Albumin 3.7 g/dL (3.4-5.0); Alkaline Phosphatase 81 U/L (46-116); Anion Gap 5.9 mmol/L (3-11); BUN 11 mg/dL (7-18); Bilirubin, Total 0.33 mg/dL (0.2-1.0); CO2 28.1 mmol/L (21.0-32.0); CREATININE 0.8 mg/dL (0.55-1.02); Calcium 8.8 mg/dL (8.5-10.1); Chloride 99 mmol/L (98-107); Estimated GFR 84.82 (mL/min/1.73m2); Glucose 90 mg/dL (74-106); Potassium 4.4 mmol/L (3.5-5.1); Sodium 133 mmol/L (136-145); Total Protein 7.1 g/dL (6.4-8.2)
== END 2024-01-24 23:59 | disposition home or self-care (01) ==
LOC: INF 03:04
PROVIDERS: Nurse Practitioner Family; PCP Physician Assistant; Visit Provider Internal Medicine Hematology & Oncology
DX: C50.919 Malignant neoplasm of unspecified site of unspecified female breast (principal); Z45.2 Encounter for adjustment and management of vascular access device
CPT/HCPCS: 36591; 80053; 85025

== ENCOUNTER 2024-02-13 01:43 | Outpatient (RCR) | payer BC, SELFPAY ==
[2024-01-26] MEDS: Normal Saline Flush 10 ML SYR IVP (12:35)
[2024-01-26 13:17] LABS: Abs Immature Grans 0.03 10^3/uL (0.0-0.06); Absolute Basophil Count 0.04 10^3/uL (0.0-0.2); Absolute Eosinophil Count 0.35 10^3/uL (0.0-0.7); Absolute Monocyte Count 0.43 10^3/uL (0.1-0.8); Absolute Neutrophil Count 3.42 10^3/uL (1.2-6.7); Basophils % 0.6 %; Eosinophils % 5.7 %; HCT 37.2 % (36.0-46.0); HGB 12.6 g/dL (11.2-15.7); Immature Grans % 0.5 %; Lymphocytes % 30.8 %; MCH 31.1 pg (27.0-33.0); MCHC 33.9 % (32.0-36.0); MCV 92 fL (80-95); MPV 10.9 fL (8.0-11.0); Neutrophils % 55.4 %; Platelet Count 276 10^3/uL (130-400); RBC 4.05 10^6/uL (3.93-5.22); RDW 14.2 % (11.7-14.6); RDW-SD 48.1 fL; WBC 6.17 10^3/uL (4.4-10.8)
[2024-01-26 13:39] LABS: ALT 24 U/L (14-59); AST 20 U/L (15-37); Albumin 3.8 g/dL (3.4-5.0); Alkaline Phosphatase 85 U/L (46-116); Anion Gap 6.3 mmol/L (3-11); BUN 14 mg/dL (7-18); Bilirubin, Total 0.37 mg/dL (0.2-1.0); CO2 29.7 mmol/L (21.0-32.0); CREATININE 0.9 mg/dL (0.55-1.02); Calcium 9.3 mg/dL (8.5-10.1); Chloride 103 mmol/L (98-107); Estimated GFR 73.64 (mL/min/1.73m2); Glucose 81 mg/dL (74-106); Potassium 4.3 mmol/L (3.5-5.1); Sodium 139 mmol/L (136-145); Total Protein 7.6 g/dL (6.4-8.2)
[2024-02-13] MEDS: Normal Saline Flush 10 ML SYR IVP (09:27)
[2024-02-13 09:41] LABS: Abs Immature Grans 0.01 10^3/uL (0.0-0.06); Absolute Basophil Count 0.04 10^3/uL (0.0-0.2); Absolute Eosinophil Count 0.38 10^3/uL (0.0-0.7); Absolute Lymphocyte Count 1.85 10^3/uL (1.2-3.4); Absolute Monocyte Count 0.36 10^3/uL (0.1-0.8); Basophils % 0.8 %; Eosinophils % 7.9 %; HCT 38.1 % (36.0-46.0); HGB 12.7 g/dL (11.2-15.7); Immature Grans % 0.2 %; Lymphocytes % 38.2 %; MCH 31.4 pg (27.0-33.0); MCHC 33.3 % (32.0-36.0); MCV 94 fL (80-95); MPV 10.9 fL (8.0-11.0); Monocytes % 7.4 %; Neutrophils % 45.5 %; Platelet Count 235 10^3/uL (130-400); RBC 4.04 10^6/uL (3.93-5.22); RDW 13.1 % (11.7-14.6); RDW-SD 45.4 fL; WBC 4.84 10^3/uL (4.4-10.8)
[2024-02-13 10:04] LABS: ALT 22 U/L (14-59); AST 20 U/L (15-37); Albumin 3.8 g/dL (3.4-5.0); Alkaline Phosphatase 96 U/L (46-116); Anion Gap 10.8 mmol/L (3-11); BUN 12 mg/dL (7-18); Bilirubin, Total 0.33 mg/dL (0.2-1.0); CO2 24.2 mmol/L (21.0-32.0); Calcium 9.2 mg/dL (8.5-10.1); Chloride 103 mmol/L (98-107); Glucose 78 mg/dL (74-106); Potassium 4.4 mmol/L (3.5-5.1); Sodium 138 mmol/L (136-145); Total Protein 7.6 g/dL (6.4-8.2)
== END 2024-02-24 23:59 | disposition home or self-care (01) ==
LOC: INF 01:43
PROVIDERS: Nurse Practitioner Family; PCP Physician Assistant; Visit Provider Internal Medicine Hematology & Oncology
DX: C50.919 Malignant neoplasm of unspecified site of unspecified female breast (principal)
CPT/HCPCS: 36591; 80053; 85025

== ENCOUNTER 2024-03-05 01:42 | Outpatient (RCR) | payer BC, SELFPAY ==
[2024-03-05 11:01] LABS: Abs Immature Grans 0.01 10^3/uL (0.0-0.06); Absolute Basophil Count 0.03 10^3/uL (0.0-0.2); Absolute Eosinophil Count 0.17 10^3/uL (0.0-0.7); Absolute Lymphocyte Count 1.62 10^3/uL (1.2-3.4); Absolute Monocyte Count 0.34 10^3/uL (0.1-0.8); Absolute Neutrophil Count 2.92 10^3/uL (1.2-6.7); Basophils % 0.6 %; Eosinophils % 3.3 %; HCT 36.7 % (36.0-46.0); HGB 12.2 g/dL (11.2-15.7); Immature Grans % 0.2 %; Lymphocytes % 31.8 %; MCH 30.7 pg (27.0-33.0); MCHC 33.2 % (32.0-36.0); MCV 92 fL (80-95); MPV 10.7 fL (8.0-11.0); Monocytes % 6.7 %; Neutrophils % 57.4 %; Platelet Count 275 10^3/uL (130-400); RBC 3.97 10^6/uL (3.93-5.22); RDW 12.2 % (11.7-14.6); RDW-SD 41.5 fL; WBC 5.09 10^3/uL (4.4-10.8)
[2024-03-05 11:17] LABS: ALT 21 U/L (14-59); AST 21 U/L (15-37); Albumin 3.5 g/dL (3.4-5.0); Alkaline Phosphatase 89 U/L (46-116); BUN 10 mg/dL (7-18); Bilirubin, Total 0.33 mg/dL (0.2-1.0); CREATININE 0.9 mg/dL (0.55-1.02); Chloride 101 mmol/L (98-107); Estimated GFR 73.64 (mL/min/1.73m2); Glucose 96 mg/dL (74-106); Potassium 4.3 mmol/L (3.5-5.1); Sodium 138 mmol/L (136-145); Total Protein 7.3 g/dL (6.4-8.2)
== END 2024-03-25 23:59 | disposition home or self-care (01) ==
LOC: INF 01:42
PROVIDERS: PCP Physician Assistant; Visit Provider Internal Medicine Hematology & Oncology
DX: Z45.2 Encounter for adjustment and management of vascular access device (principal); C50.919 Malignant neoplasm of unspecified site of unspecified female breast
CPT/HCPCS: 36591; 80053; 85025

== ENCOUNTER 2024-04-05 00:10 | Outpatient (CLI) | payer BC, SELFPAY ==
--- NOTE | 2024-04-05 07:30 | DI.US_ITS ---
APPROVED REPORT EXAM: Comprehensive 2D, Doppler, and color-flow Echocardiogram Patient Location: Out-Patient Gantry Crane Operator: Rebekah Harris RDCS (AE) Indications: Breast Cancer, HER2 Positive carcinoma Other Information Study Quality: Adequate Conclusion Normal left ventricular wall thickness and chamber size. Ejection fraction is 60%. Wall motion is n ormal Normal right ventricular size and function Both atria are normal in size There is no structural or hemodynamically significant valvular disease Estimated right ventricular systolic pressure is 24 mmHg Wall motion Left Ventricle The left ventricle is normal size. The left ventricular systolic function is normal. The left ventric ular ejection fraction is within the normal range. GLS is 18% There is normal left ventricular wall t hickness. There is normal LV segmental wall motion. There is no ventricular septal defect visualized. LVEF is 60%. Right Ventricle The right ventricle is normal size. The right ventricular systolic function is normal. Atria The left atrium size is normal. The right atrium size is normal. The interatrial septum is intact wit h no evidence for an atrial septal defect. Aortic Valve The aortic valve is normal in structure. Aortic valve is trileaflet. There is no aortic valvular sten osis. No aortic regurgitation is present. Mitral Valve The mitral valve is normal in structure. No evidence of mitral valve stenosis. Trace mitral regurgita tion. Tricuspid Valve The tricuspid valve is normal in structure. There is no tricuspid valve stenosis. Trace to mild tricu spid regurgitation. The RVSP is 24.0 mmHg. Pulmonic Valve The pulmonary valve is normal in structure. There is no pulmonic valvular stenosis. There is no pulmo yaz valvular regurgitation. Great Vessels The aortic root is normal in size. The ascending aorta is normal in size. Aortic arch is not well vis ualized. IVC is normal in size and collapses >50% with inspiration. Pericardium There is no pericardial effusion. 2D Dimensions IVSD d PLAX 0.90 cm F: 0.6-1.0 Ao Root d 2.36 cm F: 2.7 - 3.3 LVPW d PLAX 0.90 cm F: 0.6 - 1.0 Ao Asc Diam d 2.35 cm F: 2.3 - 3.1 LVID d PLAX 4.00 cm F: 3.8 - 5.2 LVDs 2.84 cm F: 2.2 - 3.5 LV EF Teichholz 55.1 % FS 28.18 % LV EDV (Teich) 68.0 mL LV ESV (Teich) 30.5 mL M-Mode TAPSE 2.39 cm (M/F) >1.7 Auto EF LV EDV A4C 71.9 mL LV EDV A2C 88.8 mL LV EDV BP 80.0 mL LV ESV A4C 29.3 mL LV ESV A2C 33.1 mL LV ESV BP 31.0 mL LVEF(%) A4C 59.3 % LVEF(%) A2C 62.8 % LVEF(%) BP 61.2 % LV SV A4C 42.6 ml LV SV A2C 55.8 ml LV SV BP 49.0 ml LV CO A4C 2.3 L/min LV CO A2C 3.0 L/min LV CO BP 2.6 L/min HR A4C 53.26 BPM HR A2C 53.26 BPM LV EDV Index (BP) LV Strain Long Pk Overal Avg (s) 18.00 LA Volume LA Length A4C 4.3 cm LA Length A2C 4.4 cm LA Area A4C s 10.49 cm2 LA Area A2C s 13.46 cm2 LA Vol A4C A-L 21.71 mL LA Vol A2C A-L 35.02 mL LA Vol Biplane A-L 27.9 mL LA Vol/BSA A4C A-L LA Vol/BSA A2C A-L LA Vol/BSA BP A-L 17.0 mL/m2 LA Vol A4C MOD 19.8 mL LA Vol A2C MOD 33.2 mL LA Vol BP MOD 25.7 mL RA Volume RA Area A4C 7.8 cm2 RA ESV A4C (A-L) 15.9mL RA Vol/BSA A4C A-L RA Length A4C 3.3 cm RA ESV A4C (MOD) 14.6mL LV Diastology MV E' medial 0.129 (>0.07 m/s) MV E Vmax 0.86 (0.4-1.3 m/s) MV E/E' MED 6.72 (<14) MV A Vmax 0.65 (0.4-1.3 m/s) MV E' lateral 0.103 (>0.1 m/s) E/A Ratio 1.3 MV E/E' LAT 8.42 (<14) MV E' Average 0.116 m/s MV E/E'(average) 7.48 Aortic Valve AoV Vmax 1.07 m/s LVOT Vmax 0.94 m/s AoV Peak Grad 4.5 mmHg LVOT Peak Grad 3.5 mmHg AoV Area (Vmax) 2.66 cm2 LVOT VTI 0.220 m AoV VTI 0.281 m LVOT Mean Grad 2.0 mmHg AoV Mean Rajinder. 0.75 m/s LVOT SV 66.40 mL AoV Mean Grad 2.5 mmHg LVOT Diam s 1.95 cm AoV Area (VTI) 2.37 cm2 AV Regurg Peak Gr. 4.54 mmHg Velocity Ratio 0.88 Mitral Valve MV DT 221 (160-240 msec) MV Vmax TIPS 0.93 m/s MV Mean Grad 1.0 (<2mmHg) MV VTI 0.316 m Pulmonary Valve PV Vmax 0.85 (0.5-1.5 m/s) RVOT Vmax 0.79 m/s PV Peak Grad 2.9 mmHg RVOT Peak Gr. 2.5 mmHg PV Mean Rajinder 0.65 m/s RVOT VTI 0.205 m PV Mean Grad 1.8 mmHg RVOT Mean Gr. 1.6 mmHg Tricuspid Valve RA Pressure 3.00 mmHg TR Vmax 2.29 m/s TV S' 0.15 m/s TR Peak Grad 20.9 mmHg RVSP (TR) 24.0 mmHg
== END 2024-04-05 00:30 ==
LOC: DI 00:10
PROVIDERS: PCP Physician Assistant; Visit Provider Internal Medicine Hematology & Oncology
DX: I25.10 Atherosclerotic heart disease of native coronary artery without angina pectoris (principal)
CPT/HCPCS: 93306

== ENCOUNTER 2024-04-16 01:41 | Outpatient (RCR) | payer BC, SELFPAY ==
[2024-03-26] MEDS: Normal Saline Flush 10 ML SYR IVP (10:51)
[2024-03-26 11:12] LABS: Abs Immature Grans 0.01 10^3/uL (0.0-0.06); Absolute Basophil Count 0.04 10^3/uL (0.0-0.2); Absolute Eosinophil Count 0.19 10^3/uL (0.0-0.7); Absolute Monocyte Count 0.33 10^3/uL (0.1-0.8); Absolute Neutrophil Count 2.15 10^3/uL (1.2-6.7); Basophils % 0.9 %; Eosinophils % 4.1 %; HCT 37.4 % (36.0-46.0); HGB 12.6 g/dL (11.2-15.7); Immature Grans % 0.2 %; Lymphocytes % 41.1 %; MCH 30.7 pg (27.0-33.0); MCHC 33.7 % (32.0-36.0); MCV 91 fL (80-95); MPV 10.5 fL (8.0-11.0); Monocytes % 7.1 %; Neutrophils % 46.6 %; Platelet Count 263 10^3/uL (130-400); RBC 4.11 10^6/uL (3.93-5.22); RDW 11.9 % (11.7-14.6); RDW-SD 39.1 fL; WBC 4.62 10^3/uL (4.4-10.8)
[2024-03-26 11:43] LABS: ALT 23 U/L (14-59); AST 25 U/L (15-37); Albumin 3.7 g/dL (3.4-5.0); Alkaline Phosphatase 106 U/L (46-116); Anion Gap 8.8 mmol/L (3-11); BUN 11 mg/dL (7-18); Bilirubin, Total 0.28 mg/dL (0.2-1.0); CO2 26.2 mmol/L (21.0-32.0); CREATININE 0.9 mg/dL (0.55-1.02); Calcium 9.3 mg/dL (8.5-10.1); Chloride 100 mmol/L (98-107); Estimated GFR 73.64 (mL/min/1.73m2); Glucose 86 mg/dL (74-106); Potassium 4.3 mmol/L (3.5-5.1); Sodium 135 mmol/L (136-145); Total Protein 7.6 g/dL (6.4-8.2)
[2024-04-16] MEDS: Normal Saline Flush 10 ML SYR IVP (12:17)
[2024-04-16 12:32] LABS: Abs Immature Grans 0.01 10^3/uL (0.0-0.06); Absolute Basophil Count 0.04 10^3/uL (0.0-0.2); Absolute Eosinophil Count 0.13 10^3/uL (0.0-0.7); Absolute Monocyte Count 0.42 10^3/uL (0.1-0.8); Absolute Neutrophil Count 2.56 10^3/uL (1.2-6.7); Basophils % 0.8 %; Eosinophils % 2.6 %; HCT 36.8 % (36.0-46.0); HGB 12.3 g/dL (11.2-15.7); Immature Grans % 0.2 %; Lymphocytes % 36.3 %; MCH 30.2 pg (27.0-33.0); MCHC 33.4 % (32.0-36.0); MCV 90 fL (80-95); MPV 10.5 fL (8.0-11.0); Monocytes % 8.5 %; Neutrophils % 51.6 %; Platelet Count 237 10^3/uL (130-400); RBC 4.07 10^6/uL (3.93-5.22); RDW 11.9 % (11.7-14.6); RDW-SD 39.7 fL; WBC 4.96 10^3/uL (4.4-10.8)
[2024-04-16 12:45] LABS: ALT 20 U/L (14-59); AST 21 U/L (15-37); Albumin 3.6 g/dL (3.4-5.0); Alkaline Phosphatase 93 U/L (46-116); BUN 14 mg/dL (7-18); Bilirubin, Total 0.31 mg/dL (0.2-1.0); CREATININE 0.8 mg/dL (0.55-1.02); Calcium 9.2 mg/dL (8.5-10.1); Chloride 104 mmol/L (98-107); Estimated GFR 84.82 (mL/min/1.73m2); Glucose 89 mg/dL (74-106); Potassium 4.3 mmol/L (3.5-5.1); Sodium 139 mmol/L (136-145); Total Protein 7.5 g/dL (6.4-8.2)
== END 2024-04-25 23:59 | disposition home or self-care (01) ==
LOC: INF 01:41
PROVIDERS: Nurse Practitioner Family; PCP Physician Assistant; Visit Provider Internal Medicine Hematology & Oncology
DX: C50.919 Malignant neoplasm of unspecified site of unspecified female breast (principal); Z45.2 Encounter for adjustment and management of vascular access device
CPT/HCPCS: 36591; 80053; 85025

== ENCOUNTER 2024-05-09 01:43 | Outpatient (RCR) | payer BC, SELFPAY ==
[2024-05-09] MEDS: Normal Saline Flush 10 ML SYR IVP (13:20)
[2024-05-09 13:41] LABS: Abs Immature Grans 0.01 10^3/uL (0.0-0.06); Absolute Basophil Count 0.04 10^3/uL (0.0-0.2); Absolute Eosinophil Count 0.12 10^3/uL (0.0-0.7); Absolute Lymphocyte Count 2.21 10^3/uL (1.2-3.4); Absolute Monocyte Count 0.34 10^3/uL (0.1-0.8); Absolute Neutrophil Count 2.55 10^3/uL (1.2-6.7); Basophils % 0.8 %; Eosinophils % 2.3 %; HGB 12.6 g/dL (11.2-15.7); Immature Grans % 0.2 %; Lymphocytes % 41.9 %; MCH 29.8 pg (27.0-33.0); MCHC 33.2 % (32.0-36.0); MCV 90 fL (80-95); MPV 10.8 fL (8.0-11.0); Monocytes % 6.5 %; Neutrophils % 48.3 %; Platelet Count 236 10^3/uL (130-400); RBC 4.23 10^6/uL (3.93-5.22); RDW 12.2 % (11.7-14.6); RDW-SD 39.8 fL; WBC 5.27 10^3/uL (4.4-10.8)
[2024-05-09 13:43] LABS: ALT 21 U/L (14-59); AST 19 U/L (15-37); Albumin 3.5 g/dL (3.4-5.0); Alkaline Phosphatase 88 U/L (46-116); BUN 13 mg/dL (7-18); Bilirubin, Total 0.26 mg/dL (0.2-1.0); CREATININE 0.8 mg/dL (0.55-1.02); Calcium 9.1 mg/dL (8.5-10.1); Chloride 104 mmol/L (98-107); Estimated GFR 84.82 (mL/min/1.73m2); Glucose 91 mg/dL (74-106); Potassium 4.3 mmol/L (3.5-5.1); Sodium 140 mmol/L (136-145); Total Protein 7.3 g/dL (6.4-8.2)
== END 2024-05-25 23:59 | disposition home or self-care (01) ==
LOC: INF 01:43
PROVIDERS: Nurse Practitioner Family; PCP Physician Assistant; Visit Provider Internal Medicine Hematology & Oncology
DX: C50.919 Malignant neoplasm of unspecified site of unspecified female breast (principal); Z45.2 Encounter for adjustment and management of vascular access device
CPT/HCPCS: 36591; 80053; 85025

== ENCOUNTER 2024-06-21 01:10 | Outpatient (RCR) | payer BC, SELFPAY ==
[2024-05-31] MEDS: Normal Saline Flush 10 ML SYR IVP (10:52)
[2024-05-31 11:03] LABS: Abs Immature Grans 0.01 10^3/uL (0.0-0.06); Absolute Basophil Count 0.04 10^3/uL (0.0-0.2); Absolute Eosinophil Count 0.13 10^3/uL (0.0-0.7); Absolute Lymphocyte Count 1.82 10^3/uL (1.2-3.4); Absolute Monocyte Count 0.45 10^3/uL (0.1-0.8); Absolute Neutrophil Count 2.77 10^3/uL (1.2-6.7); Basophils % 0.8 %; Eosinophils % 2.5 %; HCT 37.8 % (36.0-46.0); HGB 12.3 g/dL (11.2-15.7); Immature Grans % 0.2 %; Lymphocytes % 34.9 %; MCH 29.4 pg (27.0-33.0); MCHC 32.5 % (32.0-36.0); MCV 90 fL (80-95); MPV 10.5 fL (8.0-11.0); Monocytes % 8.6 %; Platelet Count 249 10^3/uL (130-400); RBC 4.19 10^6/uL (3.93-5.22); RDW 13.2 % (11.7-14.6); RDW-SD 43.8 fL; WBC 5.22 10^3/uL (4.4-10.8)
[2024-05-31 11:19] LABS: ALT 23 U/L (14-59); AST 22 U/L (15-37); Albumin 3.6 g/dL (3.4-5.0); Alkaline Phosphatase 103 U/L (46-116); Anion Gap 10.1 mmol/L (3-11); BUN 11 mg/dL (7-18); Bilirubin, Total 0.26 mg/dL (0.2-1.0); CO2 26.9 mmol/L (21.0-32.0); Calcium 8.8 mg/dL (8.5-10.1); Chloride 104 mmol/L (98-107); Glucose 123 mg/dL (74-106); Potassium 4.2 mmol/L (3.5-5.1); Sodium 141 mmol/L (136-145); Total Protein 7.3 g/dL (6.4-8.2)
[2024-06-21] MEDS: Normal Saline Flush 10 ML SYR IVP (08:26)
== END 2024-06-25 23:59 | disposition home or self-care (01) ==
LOC: INF 01:10
PROVIDERS: Nurse Practitioner Family; PCP Physician Assistant; Visit Provider Internal Medicine Hematology & Oncology
DX: C50.919 Malignant neoplasm of unspecified site of unspecified female breast (principal); Z45.2 Encounter for adjustment and management of vascular access device
CPT/HCPCS: 36591; 80053; 85025

== ENCOUNTER 2024-07-11 00:37 | Outpatient (RCR) | payer BC, SELFPAY ==
[2024-07-11] MEDS: Normal Saline Flush 10 ML SYR IVP (13:10)
[2024-07-11 13:48] LABS: Abs Immature Grans 0.01 10^3/uL (0.0-0.06); Absolute Basophil Count 0.03 10^3/uL (0.0-0.2); Absolute Eosinophil Count 0.09 10^3/uL (0.0-0.7); Absolute Lymphocyte Count 1.99 10^3/uL (1.2-3.4); Absolute Monocyte Count 0.41 10^3/uL (0.1-0.8); Absolute Neutrophil Count 2.81 10^3/uL (1.2-6.7); Basophils % 0.6 %; Eosinophils % 1.7 %; HCT 38.3 % (36.0-46.0); HGB 12.6 g/dL (11.2-15.7); Immature Grans % 0.2 %; Lymphocytes % 37.3 %; MCH 29.6 pg (27.0-33.0); MCHC 32.9 % (32.0-36.0); MCV 90 fL (80-95); Monocytes % 7.7 %; Neutrophils % 52.5 %; Platelet Count 238 10^3/uL (130-400); RBC 4.26 10^6/uL (3.93-5.22); RDW 13.5 % (11.7-14.6); RDW-SD 44.5 fL; WBC 5.34 10^3/uL (4.4-10.8)
[2024-07-11 14:06] LABS: ALT 22 U/L (14-59); AST 20 U/L (15-37); Albumin 3.8 g/dL (3.4-5.0); Alkaline Phosphatase 105 U/L (46-116); Anion Gap 4.9 mmol/L (3-11); BUN 13 mg/dL (7-18); Bilirubin, Total 0.29 mg/dL (0.2-1.0); CO2 31.1 mmol/L (21.0-32.0); CREATININE 0.9 mg/dL (0.55-1.02); Calcium 8.9 mg/dL (8.5-10.1); Chloride 103 mmol/L (98-107); Estimated GFR 73.64 (mL/min/1.73m2); Glucose 83 mg/dL (74-106); Potassium 4.1 mmol/L (3.5-5.1); Sodium 139 mmol/L (136-145); Total Protein 7.5 g/dL (6.4-8.2)
== END 2024-07-26 23:59 | disposition home or self-care (01) ==
LOC: INF 00:37
PROVIDERS: PCP Physician Assistant; Visit Provider Internal Medicine Hematology & Oncology
DX: C50.919 Malignant neoplasm of unspecified site of unspecified female breast (principal)
CPT/HCPCS: 36591; 80053; 85025

== ENCOUNTER 2024-08-22 02:36 | Outpatient (RCR) | payer BC, SELFPAY ==
[2024-08-01] MEDS: Normal Saline Flush 10 ML SYR IVP (08:44)
[2024-08-01 08:59] LABS: Abs Immature Grans 0.01 10^3/uL (0.0-0.06); Absolute Basophil Count 0.04 10^3/uL (0.0-0.2); Absolute Eosinophil Count 0.11 10^3/uL (0.0-0.7); Absolute Monocyte Count 0.48 10^3/uL (0.1-0.8); Absolute Neutrophil Count 3.22 10^3/uL (1.2-6.7); Basophils % 0.7 %; HCT 37.6 % (36.0-46.0); HGB 12.5 g/dL (11.2-15.7); Immature Grans % 0.2 %; Lymphocytes % 30.6 %; MCHC 33.2 % (32.0-36.0); MCV 90 fL (80-95); MPV 10.7 fL (8.0-11.0); Monocytes % 8.6 %; Neutrophils % 57.9 %; Platelet Count 249 10^3/uL (130-400); RBC 4.16 10^6/uL (3.93-5.22); RDW 13.6 % (11.7-14.6); RDW-SD 45.3 fL; WBC 5.56 10^3/uL (4.4-10.8)
[2024-08-01 09:19] LABS: ALT 25 U/L (14-59); AST 23 U/L (15-37); Albumin 3.6 g/dL (3.4-5.0); Alkaline Phosphatase 110 U/L (46-116); Anion Gap 9.3 mmol/L (3-11); BUN 11 mg/dL (7-18); Bilirubin, Total 0.28 mg/dL (0.2-1.0); CO2 26.7 mmol/L (21.0-32.0); Calcium 9.2 mg/dL (8.5-10.1); Chloride 103 mmol/L (98-107); Estimated GFR 64.49 (mL/min/1.73m2); Glucose 125 mg/dL (74-106); Potassium 4.4 mmol/L (3.5-5.1); Sodium 139 mmol/L (136-145); Total Protein 7.3 g/dL (6.4-8.2)
[2024-08-22] MEDS: Normal Saline Flush 10 ML SYR IVP (09:03)
[2024-08-22 09:16] LABS: Abs Immature Grans 0.03 10^3/uL (0.0-0.06); Absolute Basophil Count 0.04 10^3/uL (0.0-0.2); Absolute Lymphocyte Count 1.94 10^3/uL (1.2-3.4); Absolute Monocyte Count 0.44 10^3/uL (0.1-0.8); Absolute Neutrophil Count 3.35 10^3/uL (1.2-6.7); Basophils % 0.7 %; Eosinophils % 1.7 %; HCT 38.7 % (36.0-46.0); HGB 12.8 g/dL (11.2-15.7); Immature Grans % 0.5 %; Lymphocytes % 32.9 %; MCH 29.8 pg (27.0-33.0); MCHC 33.1 % (32.0-36.0); MCV 90 fL (80-95); MPV 10.8 fL (8.0-11.0); Monocytes % 7.5 %; Neutrophils % 56.7 %; Platelet Count 265 10^3/uL (130-400); RDW 13.3 % (11.7-14.6)
[2024-08-22 09:43] LABS: ALT 25 U/L (14-59); AST 23 U/L (15-37); Albumin 3.6 g/dL (3.4-5.0); Alkaline Phosphatase 104 U/L (46-116); BUN 15 mg/dL (7-18); Calcium 9.3 mg/dL (8.5-10.1); Chloride 103 mmol/L (98-107); Estimated GFR 64.49 (mL/min/1.73m2); Glucose 120 mg/dL (74-106); Potassium 4.2 mmol/L (3.5-5.1); Sodium 140 mmol/L (136-145); Total Protein 7.3 g/dL (6.4-8.2)
== END 2024-08-23 23:59 | disposition home or self-care (01) ==
LOC: INF 02:36
PROVIDERS: Nurse Practitioner Family; PCP Physician Assistant; Visit Provider Internal Medicine Hematology & Oncology
DX: C50.919 Malignant neoplasm of unspecified site of unspecified female breast (principal)
CPT/HCPCS: 36591; 80053; 85025

== ENCOUNTER 2024-09-12 01:28 | Outpatient (RCR) | payer BC, SELFPAY ==
[2024-09-12 10:13] LABS: Abs Immature Grans 0.01 10^3/uL (0.0-0.06); Absolute Basophil Count 0.03 10^3/uL (0.0-0.2); Absolute Lymphocyte Count 1.64 10^3/uL (1.2-3.4); Absolute Monocyte Count 0.34 10^3/uL (0.1-0.8); Absolute Neutrophil Count 2.19 10^3/uL (1.2-6.7); Basophils % 0.7 %; Eosinophils % 2.3 %; HGB 13.1 g/dL (11.2-15.7); Immature Grans % 0.2 %; Lymphocytes % 38.1 %; MCH 29.9 pg (27.0-33.0); MCHC 33.6 % (32.0-36.0); MCV 89 fL (80-95); MPV 11.1 fL (8.0-11.0); Monocytes % 7.9 %; Neutrophils % 50.8 %; Platelet Count 214 10^3/uL (130-400); RBC 4.38 10^6/uL (3.93-5.22); RDW 12.7 % (11.7-14.6); WBC 4.31 10^3/uL (4.4-10.8)
[2024-09-12] MEDS: Normal Saline Flush 10 ML SYR IVP (10:22)
[2024-09-12 10:37] LABS: ALT 20 U/L (14-59); AST 27 U/L (15-37); Albumin 3.8 g/dL (3.4-5.0); Alkaline Phosphatase 103 U/L (46-116); Anion Gap 5.9 mmol/L (3-11); BUN 12 mg/dL (7-18); Bilirubin, Total 0.3 mg/dL (0.2-1.0); CO2 30.1 mmol/L (21.0-32.0); CREATININE 0.8 mg/dL (0.55-1.02); Calcium 9.4 mg/dL (8.5-10.1); Chloride 104 mmol/L (98-107); Glucose 81 mg/dL (74-106); Potassium 4.3 mmol/L (3.5-5.1); Sodium 140 mmol/L (136-145); Total Protein 7.6 g/dL (6.4-8.2)
== END 2024-09-23 23:59 | disposition home or self-care (01) ==
LOC: INF 01:28
PROVIDERS: Nurse Practitioner Family; PCP Physician Assistant; Visit Provider Internal Medicine Hematology & Oncology
DX: C50.919 Malignant neoplasm of unspecified site of unspecified female breast (principal)
CPT/HCPCS: 36591; 80053; 85025

== ENCOUNTER 2025-04-02 02:16 | Outpatient (CLI) | payer BC, SELFPAY ==
--- NOTE | 2025-04-02 | DI.MRI_ITS ---
Exam(s) MR LOWER JOINT RT WO/W EXAM: MR LOWER JOINT RT WO/W CLINICAL HISTORY: BREAST CANCER C50.919 PAIN RT KNEE M25.561 X2 MONTHS W/INSTABILITY TECHNIQUE: Multiplanar multisequence MRI of the knee was performed on 1.5 yan unit with both pre and post contrast infused sequences. IV contrast: 12 mL Dotarem COMPARISON: There are no plain films available at the time of this MRI interpretation. FINDINGS: EFFUSION: There is a moderate size knee joint effusion. There is no Urban cyst in the popliteal fossa. MARROW:There is significant bone edema-bone contusion in the medial tibial plateau and overlying medial femoral condyle. There is no typical pivot shift bone contusion configuration. There are no lytic nor blastic osseous lesions evident, given the history of breast cancer. There are also no enhancing soft tissue masses. PATELLOFEMORAL COMPARTMENT: The quadriceps tendon is intact. The patellar ligament is intact. There is mild relatively uniform thinning of the retropatellar cartilage. No deep focal fissures. No osteochondral defects evident. No degenerative subarticular cysts in the patella. There is no intraosseous signal to suggest recent patellar dislocation. There are no patellar retinacular tears. CRUCIATE LIGAMENTS: The anterior cruciate ligament is intact.The posterior cruciate ligament is intact. MEDIAL COMPARTMENT/MEDIAL MENISCUS: There is significant tear at the junction of the body and posterior horn of the medial meniscus. Tear is approximately 6 mm wide. The meniscal root is intact. The tear starts 3 mm in from the meniscocapsular junction. There is mild meniscocapsular separation. There is no wide bucket-handle configuration and no flipped meniscal fragments. There is mild extrusion of the outer aspect of the torn posterior horn at this level but no evidence of para tibial gutter descent of the meniscus. The anterior horn of the medial meniscus is intact. There is some mild articular cartilage thinning over this region of the medial femoral condyle. There is mild-moderate subarticular bone edema along the entire aspect of the main weight-bearing surface of the medial condyle of as well as in the sub adjacent medial tibial plateau. There are no osteochondral defects. No marginal osteophytes. MEDIAL COLLATERAL LIGAMENT: There is sprain signal evident in the medial collateral ligament with increased signal between the deep and superficial layers of this structure. However, there does not appear to be a full-thickness MCL tear. LATERAL COMPARTMENT/LATERAL MENISCUS: There is no evidence of lateral meniscal tear.There are no chondral defects, osteochondral defects, subarticular marrow edema, nor osteophytes evident. ILIOTIBIAL BAND: Intact LATERAL COLLATERAL LIGAMENT COMPLEX: The fibular collateral ligament is intact. The biceps femoris tendon is intact.Popliteus muscle and tendon are intact. IMPRESSION: 1. There is significant tear at the junction of the body and posterior horn of the medial meniscus as described above. The width of the tear is 6 mm. There are no flipped meniscal fragments. Other details of the tear as above. The anterior horn of the medial meniscus is intact. There is mild overlying articular cartilage thinning and subarticular edema in the medial femoral condyle weight-bearing surface as well as in the subjacent medial tibial plateau. There are no osteochondral defects. No loose intra-articular bodies. 2. There is sprain signal in the medial collateral ligament. There does not appear to be a high-grade tear of this structure. 3. There are no tears of the lateral meniscus nor other significant findings in the lateral compartment. 4. There are no cruciate ligament tears nor tears of the components of the lateral collateral ligament complex and iliotibial band. 5. Mild chondromalacia patella. No osteochondral defects at this level. No intra patellar bone edema. No patellar retinacular tears. 6. There is a moderate size knee joint effusion. There is no Urban cyst in the popliteal fossa. There are no loose intra-articular bodies evident. DATA REPOSITORY:
[2025-04-02] MEDS: Normal Saline Flush 10 ML SYR IVP (13:04)
[2025-04-02] MEDS: Gadoterate meglumine 20 ML SYRINGE IVP (13:07)
== END 2025-04-02 02:36 ==
LOC: DI 02:16
PROVIDERS: PCP Physician Assistant; Visit Provider Nurse Practitioner Family
DX: S83.241D Other tear of medial meniscus, current injury, right knee, subsequent encounter; X58.XXXD Exposure to other specified factors, subsequent encounter; M22.41 Chondromalacia patellae, right knee
CPT/HCPCS: 73723

== ENCOUNTER 2025-05-13 09:45 | Outpatient (CLI) | payer BC, SELFPAY ==
--- NOTE | 2025-05-13 08:15 | DI.RAD_ITS ---
Exam(s) XR KNEE RT 3V AP,LAT,FIFI EXAM: XR KNEE RT 3V AP,LAT,FIFI CLINICAL HISTORY: RIGHT KNEE PAIN. TECHNIQUE: 2D digital imaging was performed. Three views. COMPARISON: No exams were available for comparison FINDINGS: BONES: No acute fracture is present. No bony destructive lesion is seen. JOINTS: The knee is normally aligned. There is question of mild narrowing of the lateral patellofemoral joint versus projection. No joint effusion is seen. SOFT TISSUE: Normal. IMPRESSION: Question mild narrowing of the lateral patellofemoral joint versus positioning. DATA REPOSITORY: RADIATION DOSE DELIVERED:
== END 2025-05-13 09:46 | disposition home or self-care (01) ==
LOC: DIORS 09:45
PROVIDERS: PCP Physician Assistant; Visit Provider Student in an Organized Health Care Education/Training Program
DX: S83.241A Other tear of medial meniscus, current injury, right knee, initial encounter (principal)
CPT/HCPCS: 73562